=== PATIENT | male | born 1945 | race Caucasian/White ===

== ENCOUNTER → 2017-02-24 | Outpatient (CLI) | payer BC, OTHER | LOC: FIMAGING 10:41 | PROVIDERS: ATTEND Physician Assistant | DX: Z98.1 Arthrodesis status (principal) ==

== ENCOUNTER → 2017-07-31 | Outpatient (CLI) | payer BC | LOC: BMCIMAGING 11:39 | PROVIDERS: ATTEND Orthopaedic Surgery Hand Surgery | DX: Z13.828 Encounter for screening for other musculoskeletal disorder (principal); M77.8 Other enthesopathies, not elsewhere classified ==

== ENCOUNTER → 2017-10-07 | Outpatient (CLI) | payer BC | LOC: BMCIMAGING 14:03 | PROVIDERS: ATTEND Orthopaedic Surgery Hand Surgery | DX: M75.32 Calcific tendinitis of left shoulder (principal) ==

== ENCOUNTER → 2018-01-15 | Outpatient (CLI) | payer BC ==
[~2018-01-15] MED LIST: BUPIVACAINE 0.25% 30 ML SDV ONE; DEPO METHYLPREDNISOLONE 40 MG/ML SDV ONE; LIDOCAINE 1% 300 MG/30 ML SDV ONE
== END ==
LOC: FIMAGING 07:45
PROVIDERS: ATTEND Orthopaedic Surgery
PROC: 3E0U3GC Introduction of Other Therapeutic Substance into Joints, Percutaneous Approach (ICD-10-PCS; principal; 2018-01-15)
DX: M75.32 Calcific tendinitis of left shoulder (principal)
CPT/HCPCS: J1030

== ENCOUNTER → 2018-02-24 | Outpatient (CLI) | payer BC | LOC: FCPNEURO 21:30 | PROVIDERS: ATTEND Psychiatry & Neurology Sleep Medicine | DX: G47.33 Obstructive sleep apnea (adult) (pediatric) (principal); G47.61 Periodic limb movement disorder ==

== ENCOUNTER 2018-05-05 07:49 | Observation (INO) | payer BC ==
--- NOTE | 2018-05-01 10:25 | GHP ---
[f rep st] PREOP HISTORY AND PHYSICAL DATE OF ADMISSION: 05/05/2018 PROBLEM: Right knee severe degenerative arthritis. HISTORY OF PRESENT ILLNESS: The patient is a 72-year-old man admitted for right total knee arthropla sty. He has had progressive pain in his right knee for the past several years. His activities are s everely limited. He has tried anti-inflammatory medications. He underwent a successful left total k nee arthroplasty in April of 2016. He is admitted for a right total knee arthroplasty now. PAST MEDICAL HISTORY: He has been diagnosed with intermittent atrial fibrillation within the past ye ar. He has been on Eliquis. He is also treated for hypertension, hypothyroidism and elevated choles terol. No history of DVT, hepatitis, MRSA staph infections or bleeding disorders. He has sleep apne a and uses a CPAP machine. CURRENT MEDICATIONS: Amitriptyline for sleep. Cardia XT 180 mg. Diclofenac. He stopped this in pr eparation for the surgery. Eliquis 5 mg per day. Levothyroxine 100 mcg per day. Simvastatin 40 mg per day. Tamsulosin 0.4 mg per day. Valsartan 325/hydrochlorothiazide 25 mg 1 tablet per day. ALLERGIES: Drug allergies: None. Metal allergy: None. Latex allergy: None. SOCIAL HISTORY: The patient is . He is still working. He does not smoke cigarettes and occa sionally drinks alcohol. PHYSICAL EXAMINATION: VITAL SIGNS: Height 5 feet 10 inches. Weight 188 pounds. BMI 27. EYES: Co njunctivae and sclerae are clear. Pupils are round and reactive. MOUTH: Good oral hygiene. No loo se teeth. CHEST: Clear. HEART: Regular rhythm. No murmurs. EXTREMITIES: Pertinent findings are limited to his right knee. He has a small effusion. He lacks 5 degrees of full extension and flexe s to 110 degrees. He is tender along the medial joint line. Mild pseudolaxity of his medial collate ral ligament. IMAGING: His films show advanced medial compartment degenerative arthritis. He is [id number] in t he medial compartment. IMPRESSION ON ADMISSION: 1. Right knee severe degenerative arthritis. He is prepared for right total knee arthroplasty. 2. Two years status post successful left total knee arthroplasty. 3. History of intermittent atrial fibrillation. 4. Treatment for hypertension. 5. Treatment for elevated cholesterol. 6. Treatment for hypothyroidism. PLAN: He will undergo a right total knee arthroplasty. The surgery has been described to him, inclu aysha the risks, complications, expectations, and recovery time. I have stressed the importance of po stoperative physical therapy. He understands that a small percentage of people do not get a satisfac tory result with a total knee replacement. With bilateral procedures, there can be mild [id number]-[id number] differences during the recovery and even with the final result. All his questions have been answere d, and he consents to surgery. He will stop his Eliquis 4 days prior to surgery and stop his diclofe nac 4 days prior to surgery. Copy requested to: Rojelio Prasad MD [place], [place] /[id number]/MODL
[~2018-05-05 07:49] MED LIST changes: -BUPIVACAINE 0.25% 30 ML SDV ONE; -DEPO METHYLPREDNISOLONE 40 MG/ML SDV ONE; -LIDOCAINE 1% 300 MG/30 ML SDV ONE; +POVIDONE-IODINE 20 ML in SODIUM CL IRRIG SOLUTION 500 ML IRR ONE; +ROPIVACAINE 0.2% 80 MG, EPINEPHrine 0.2 MG, KETOROLAC TROMETHAMINE 30 MG in SYRINGE 0 ML IU ONE; +TRANEXAMIC ACID 1,000 MG in NS 100 ML IV ONE; +TRANEXAMIC ACID 3,000 MG in NS (SYRINGE) 50 ML IRR ONE
[2018-05-05] MEDS ORDERED: ceFAZolin 2 GM/DEXTROSE 100 ML IV ONE (08:05)
[2018-05-05] MEDS ORDERED: DEXAMETHASONE 4 MG/ML VIAL IVP ONE (08:05)
[2018-05-05] MEDS ORDERED: GABAPENTIN 300 MG CAP PO ONE (08:05)
[2018-05-05] MEDS ORDERED: ONDANSETRON 4 MG/2 ML VIAL IVP ONE (08:05)
[2018-05-05] MEDS ORDERED: ACETAMINOPHEN 325 MG TAB PO ONE (08:05)
[2018-05-05] MEDS ORDERED: FAMOTIDINE 20 MG TAB PO ONE (08:05)
[2018-05-05] MEDS ORDERED: LR 1,000 ML IV ONE (08:09)
[2018-05-05] MEDS ORDERED: LIDOCAINE 1% 2 ML INJ ID PRN (08:09)
[2018-05-05] MEDS ORDERED: VANCOMYCIN 1 GM VIAL ONE (08:26)
[2018-05-05] MEDS ORDERED: ceFAZolin 1 GM/5 ML SYR ONE (08:27)
--- NOTE | 2018-05-05 08:45 | PDHPUP ---
History & Physical Update H&P update statement: This history and physical update is based on an assessment of the patient which was completed after admission or registration (within 24 hours), but prior to the surgery/procedure. H&P update: H&P reviewed & patient examined
[2018-05-05] MEDS ORDERED: MIDAZOLAM 2 MG/2 ML VIAL IVP ONE (08:59)
--- NOTE | 2018-05-05 09:04 | PDANEPAE ---
ANE History of Present Illness 72 year old with right knee arthritis ANE Past Medical History - Cardiovascular History Hx Hypertension: Yes Hx Arrhythmias: Yes Hx Chest Pain: No Hx Coronary Artery / Peripheral Vascular Disease: No Hx CHF / Valvular Disease: No Hx Palpitations: No Cardiovascular History Comment: ATRIAL FIB. CARDIOVERSION X2 MARCH 2018. HYPERCHOLESTEROL - Pulmonary History Hx COPD: No Hx Asthma/Reactive Airway Disease: Yes Hx Recent Upper Respiratory Infection: No Hx Oxygen in Use at Home: No Hx Sleep Apnea: Yes Sleep Apnea Screening Result - Last Documented: Positive Pulmonary History Comment: ENVIRONMENTAL ALLERGIES. POS DARYA W/CPAP - Neurologic History Hx Cerebrovascular Accident: No Hx Seizures: No Hx Dementia: No - Endocrine History Hx Diabetes: No Endocrine History Comment: HYPOTHYROIDISM - Renal History Hx Renal Disorders: No - Liver History Hx Hepatic Disorders: No - Neurological & Psychiatric Hx Hx Neurological and Psychiatric Disorders: No - Cancer History Hx Cancer: No - Congenital Disorder History Hx Congenital Disorders: No - GI History Hx Gastrointestinal Disorders: Yes Gastrointestinal History Comment: PARTIAL COLECTOMY - Other Health History Other Health History: LUMBAR SPONDYLOSIS. FORAMINNAL STENOSIS. DDD. L KNEE OA. HIGH CHOLESTEROL. INSOMNIA. DEVIATED SEPTUM. BPH - Chronic Pain History Chronic Pain: Yes (LOW BACK, R KNEE) - Surgical History Prior Surgeries: CARDIOVERSION X2 MARCH 2018. L TKA. LUMBAR FUSION. BILATERAL GREAT TOE SURGERIES,. CATARACTS. CARPAL TUNNEL SURG X3, BILAT ROTATOR CUFF SURG, PARTIAL COLECTOMY, L4-5 STENOSIS SURG 2002. L4 L5 FUSION 2016 ANE Review of Systems Review of systems is: negative Review of Systems: - Exercise capacity METS (RN): 5 METS ANE Patient History - Allergies Allergies/Adverse Reactions: No Allergies [NKDA] Allergy (Verified 01/19/16 10:37) - Home Medications Home Medications: Levothyroxine [Synthroid 100 mcg (*)] 100 mcg PO DAILY06 01/15/16 [Last Taken 06:30] Simvastatin [Zocor] 40 mg PO HS 01/15/16 [Last Taken 05/05/18 06:30] Tamsulosin HCl [Flomax 0.4 MG (*)] 0.4 mg PO HS 01/15/16 [Last Taken 1 Day Ago ~ 05/04/18] Amitriptyline HCl [Elavil 25 mg (RX)] 25 mg PO HS 04/29/18 [Last Taken 1 Day Ago ~05/04/18] Apixaban [Eliquis] 5 mg PO BID 04/29/18 [Last Taken 05/01/18] Diclofenac Sodium [Voltaren 75 MG (*)] 75 mg PO BID 04/29/18 [Last Taken 3 Days Ago ~05/02/18] Diltiazem HCl [Cartia XT 180mg] 180 mg PO DAILY 04/29/18 [Last Taken 05/05/18 06 :30] Flecainide Acetate 50 mg PO BID 04/29/18 [Last Taken 05/05/18 06:30] Valsartan/Hydrochlorothiazide [Diovan Hct 320-25 mg Tablet] 1 each PO DAILY [Last Taken 05/05/18 06:30] - NPO status NPO Status: no food or drink >8 hours NPO Since - Liquids (Date): 05/04/18 NPO Since - Liquids (Time): 19:00 NPO Since - Solids (Date): 05/04/18 NPO Since - Solids (Time): 18:30 - Anes Hx Anes Hx: no prior problems - Smoking Hx Smoking Status: Never smoked - Alcohol Use Alcohol Use: Occasionally - Family Anes Hx Family Hx Anesthesia Complications: NEG ANE Labs/Vital Signs - Vital Signs Blood Pressure: 142/74 Heart Rate: 63 Respiratory Rate: 18 O2 Sat (%): 94 Height: 177.8 cm Weight: 87.09 kg ANE Physical Exam - Airway Neck exam: FROM Mallampati Score: Class 2 Mouth exam: normal dental/mouth exam - Pulmonary Pulmonary: no respiratory distress - Cardiovascular Cardiovascular: regular rate and rhythym - ASA Status ASA Status: II ANE Anesthesia Plan Anesthesia Plan: spinal
[2018-05-05] MEDS ORDERED: MIDAZOLAM 2 MG/2 ML VIAL ONE (09:08)
[2018-05-05] MEDS ORDERED: fentaNYL 100 MCG/2 ML INJ ONE ×2 (09:21→13:06)
[2018-05-05] MEDS ORDERED: PROPOFOL/EMULSION 500 MG/50 ML BOTTLE IV ONE ×2 (09:21→11:21)
[2018-05-05] MEDS ORDERED: TRANEXAMIC ACID 3,000 MG/50 ML BAG IRR ONE (10:45)
--- NOTE | 2018-05-05 11:01 | POSTOPPROG ---
Post Op Note Date of Operation: 05/05/18 Surgeon: Yony Pratt Senior Courtroom Clerk: Kel Anesthesiologist: Dr. Avila Warm Anesthesia: IV Sedation, Spinal Post-op Diagnosis: Right knee severe degenerative arthritis. Procedure: Right total knee arthroplasty Inf/Abcess present in the surg proc area at time of surgery?: No EBL: 50-100 (Adductor canal block with indwelling catheter in PACU)
[2018-05-05] MEDS ORDERED: LACTULOSE 20 GM/30 ML UDCUP PO PRN (11:21)
[2018-05-05] MEDS ORDERED: diphenhydrAMINE 25 MG CAP PO PRN (11:21)
[2018-05-05] MEDS ORDERED: POLYETHYLENE GLYCOL 3350 17 GM PKT PO PRN (11:21)
[2018-05-05] MEDS ORDERED: BISACODYL 10 MG SUPP PR PRN (11:21)
[2018-05-05] MEDS ORDERED: CYCLOBENZAPRINE 10 MG TAB PO PRN (11:21)
[2018-05-05] MEDS ORDERED: KETOROLAC 15 MG/1 ML SDV IVP ONE (11:21)
[2018-05-05] MEDS ORDERED: PROMETHAZINE HCL 25 MG/ML INJ IVP PRN ×2 (11:21→11:37)
[2018-05-05] MEDS ORDERED: NS 500 ML IV PRN (11:21)
[2018-05-05] MEDS ORDERED: METOCLOPRAMIDE 10 MG/2 ML VIAL IVP PRN (11:21)
[2018-05-05] MEDS ORDERED: ONDANSETRON DISINTEGRATING 4 MG TAB PO PRN (11:21)
[2018-05-05] MEDS ORDERED: ONDANSETRON 4 MG/2 ML VIAL IVP PRN ×2 (11:21→11:37)
[2018-05-05] MEDS ORDERED: PROMETHAZINE HCL 25 MG SUPPR PR PRN (11:21)
[2018-05-05] MEDS ORDERED: DIPHENOXYLATE/ATROPINE LOMOTIL 1 TAB PO PRN (11:21)
[2018-05-05] MEDS ORDERED: oxyCODONE IR 5 MG TAB PO PRN (11:21)
[2018-05-05] MEDS ORDERED: TEMAZEPAM 15 MG CAP PO PRN (11:21)
[2018-05-05] MEDS ORDERED: MAGNESIUM HYDROXIDE 30 ML UDCUP PO PRN (11:21)
[2018-05-05] MEDS ORDERED: LR 1,000 ML IV SCH (11:30)
--- NOTE | 2018-05-05 11:31 | GOP ---
[f rep st] OPERATIVE REPORT DATE OF OPERATION: 05/05/2018 SURGEON: Yony Pratt MD DRAWING CHECKER: SAMANTHA Marie [facility] ANESTHESIA: A combination of Marcaine, spinal, and IV sedation and adductor canal block. ANESTHESIOLOGIST: Indio Juan MD. PREOPERATIVE DIAGNOSIS: Right knee severe degenerative arthritis with varus deformity. POSTOPERATIVE DIAGNOSIS: Right knee severe degenerative arthritis with varus deformity. PROCEDURE PERFORMED: Right total knee arthroplasty, cemented, Tinajero and Nephew Journey II, posterior stabilized. FINDINGS: ESTIMATED BLOOD LOSS: Following deflation of the tourniquet was about 100 cc. DESCRIPTION OF PROCEDURE: The patient was given 2 g of IV Ancef preoperatively within 60 minutes of surgery. He also received IV tranexamic acid at a dose of 1000 mg. He was placed on the operating r oom table and given spinal anesthesia with Marcaine by Dr. Juan. He was then placed supine and given IV sedation. A Holliday catheter was not used. He wore a BRYAN stocking and SCD on the nonoperative leg . A small bolster was placed under his right hip to prevent excessive external rotation of the right lower extremity. His right lower extremity was prepped with ChloraPrep from the upper thigh tourniq uet to the tips of the toes. It was draped free using sterile sheets, stockinette, and Ioban plastic adhesive drapes. The lower leg was wrapped with compressive Coban. The leg was exsanguinated with elevation and a 6-inch compressive wrap, and the pneumatic tourniquet was inflated to 250 mmHg. The World Health Organization time-out was performed to verify the correct patient identity and the c orrect surgical side and site. The Hazel time-out was also performed. The Gaelectricayo leg holding device was sterilely attached to the operating room table and used throughout the procedure to help position the knee. A straight midline incision was made centered on the patell a. Subcutaneous tissues were sharply divided, and hemostasis was obtained using electrocautery. A m edial subcutaneous flap was developed, and the capsule and synovium were opened in a medial parapatel lar fashion. Extensive degenerative changes were present in the medial compartment and in the femora l sulcus. The medial capsule and periosteum were elevated off the rim of the medial tibial plateau a ll the way around to the posteromedial corner. The medial collateral ligament was released enough to balance the medial side of the knee and correct the varus deformity. In order to improve exposure, the patella was prepared first. The original thickness of the patella was measured. Peripheral osteophytes removed. I cut a flat surface on the back of the patella. He was sized for a 41 mm round resurfacing component. I removed enough bone from the patella such that the remaining bone plus the thickness of the patellar component recreated the original thickness of t he patella. The composite thickness was 25 mg. The intramedullary alignment guide system was used to set up the distal femoral cut. The distal femu r was cut in 5 degrees of valgus. Because of a slight preoperative flexion contracture, I made a +2 mm cut on the distal femur. The sizing jig was used to determine proper femoral sizing. He was a tr ue size 6 without a shift. The 5-in-1 cutting block was applied, and the anterior and posterior cond ylar cuts and chamfer cuts were made. The final jig was used to remove the central portion of the di stal femur to accommodate the posterior stabilized femoral component. I was careful to determine pro per rotation by referencing off Whitesides line and other bony landmarks. Each cut was checked for a ccuracy before and after it was made. The femur was sized for a size 6 posterior stabilized componen t. Next, the tibia was prepared. The proximal tibial cut was made using the extramedullary alignment gu jhonathan system. The cut was made in a few degrees of posterior slope. I was careful to achieve proper v arus/valgus alignment and proper rotation. The posterior compartment was cleared of meniscal remnant s. Osteophytes were removed from the back of the femoral condyles. I checked the flexion and extens ion gaps. I had to recut 2 additional mm off the tibia. At that point, the extension gaps were equa l, balanced and rectangular. The tibia was sized for a size 6 component. With the trial components in place, I selected a 9 mm polyethylene posterior stabilized tibial insert. The knee came to full e xtension and flexed to 125 degrees. There was no overstuffing in flexion. His collateral ligaments were stable and balanced in 90 degrees of flexion and full extension. The trial patellar button was applied, and patellar tracking was checked. Tracking was excellent without any digital pressure. 40 mL of the joint anesthetic cocktail were injected in the posterior capsule, the quadriceps muscle and tendon areas, and the subcutaneous tissues along the skin edges. The surfaces were prepared for cementing. They were carefully cleaned with the pulsating lavage irri gation and thoroughly dried. The CarboJet device was used to blow dry the cancellous surfaces. A do uble batch of high viscosity methylmethacrylate cement with 2 g of powdered vancomycin was mixed. Wh ile it was still in a doughy state, all 3 components were cemented in place. Excess cement was remov ed before it hardened. The 9 mm trial tibial insert was re-tried and was the proper thickness. The actual component was ins erted and locked into place. The knee was thoroughly irrigated one final time with a dilute Betadine solution. The tourniquet was deflated and the total tourniquet time was 55 minutes. A solution of tranexamic acid was instilled locally into the knee. The knee was packed with a lap sponge and then wrapped with a 6-inch Clint bandage and left compressed for 2 or 3 minutes. The vastus medialis portio n of the extensor mechanism was repaired with several interrupted [id number] #2 FiberWire suture s. The capsule and synovium were closed first with multiple interrupted gpexcx-fl-tpsqg 0 PDS suture s, followed by a running #2 barbed Ethicon Stratafix PDO suture. Subcutaneous tissues were closed wi th a running 0 barbed Ethicon Stratafix Monoderm suture. The skin was closed with a running 3-0 silver ed Ethicon Stratafix Monoderm subcuticular suture. The skin was sealed with half-inch Steri-Strips. The wound was covered with a large Mepilex waterproof dressing and a 6-inch compressive wrap. A deborah g-leg BRYAN stocking and SCD were applied, followed by the cooling device. The patient wore a stocking and SCD on the opposite leg during the procedure. The sacral Mepilex dressing was applied. I used a size 6 cemented Tinajero and Nephew Oxinium posterior stabilized femoral component, size 6 ceme nted tibial base plate, a 9 mm posterior stabilized tibial insert and a 41 mm cemented round all-poly ethylene resurfacing patellar component. COUNTS: The sponge and needle count were correct on 2 occasions. DISPOSITION: He was awakened from anesthesia, transferred to his hospital [facility] and taken to PACU i n satisfactory condition. There were no recognized intraoperative complications. In the PACU, for a dditional postoperative pain control, Dr. Juan performed an adductor canal block with an indwelling c atheter. Jamie Grijalva and Pepe Aquino acted as surgical assistants. Their assistance was a medical necess ity for safe completion of the procedure. /[id number]/MODL
[2018-05-05] MEDS ORDERED: NALOXONE HCL 0.4 MG/ML INJ IVP PRN (11:37)
--- NOTE | 2018-05-05 11:38 | POSTANESTH ---
Post Anesthetic Evaluation Cardiovascular Status: Normal, Stable Respiratory Status: Normal, Stable Level of Consciousness/Mental Status: Can Participate in Eval, Mildly Sleepy, Arousable Pain Control: Adequate, Prn Tx Ordered Nausea/Vomiting Control: Adequate, Prn Tx Ordered Complications Possibly Related to Anesthesia: None Noted
[2018-05-05] MEDS: fentaNYL 100 MCG/2 ML INJ IVP PRN ×2 (13:07→13:17)
[2018-05-05] MEDS ORDERED: oxyCODONE IR 5 MG TAB ONE (13:28)
[2018-05-05] MEDS ORDERED: ceFAZolin 2 GM/DEXTROSE 100 ML IV SCH (14:00)
[2018-05-05] MEDS: ACETAMINOPHEN 325 MG TAB PO SCH ×2 (16:54→17:27)
[2018-05-05] MEDS: ceFAZolin 2 GM/DEXTROSE 100 ML IV SCH (17:25)
[2018-05-05] MEDS: FLECAINIDE ACETATE 100 MG TAB PO SCH (20:33)
[2018-05-05] MEDS: SENNOSIDES/DOCUSATE SODIUM TAB PO SCH (20:36)
[2018-05-05] MEDS: FAMOTIDINE 20 MG TAB PO SCH (20:36)
[2018-05-05] MEDS ORDERED: TAMSULOSIN HCL 0.4 MG CAP PO SCH (21:00)
[2018-05-05] MEDS ORDERED: ATORVASTATIN CALCIUM 20 MG TAB PO SCH (21:00)
[2018-05-05] MEDS ORDERED: AMITRIPTYLINE HCL 25 MG TAB PO SCH (21:00)
[2018-05-06] MEDS: ACETAMINOPHEN 325 MG TAB PO SCH ×3 (00:17→06:58)
[2018-05-06] MEDS: ceFAZolin 2 GM/DEXTROSE 100 ML IV SCH (01:27)
[2018-05-06] MEDS ORDERED: LEVOTHYROXINE 100 MCG TAB PO SCH (06:00)
[2018-05-06] MEDS: FLECAINIDE ACETATE 100 MG TAB PO SCH (07:59)
[2018-05-06] MEDS: SENNOSIDES/DOCUSATE SODIUM TAB PO SCH (07:59)
[2018-05-06] MEDS: FAMOTIDINE 20 MG TAB PO SCH (08:00)
--- NOTE | 2018-05-06 08:33 | SOAPPROG ---
SOAP Progress Note Assessment/Plan: Assessment: Afebrile. Minimal pain. Up and walking in the thao. He has already done stairs. Hemoglobin hematocrit are good. Postop films look excellent. Plan: Physical therapy today. Standing full-length alignment film. Discharge later today. 05/06/18 08:32 Objective: Vital Signs Temp Pulse Resp BP Pulse Ox 36.8 C 69 18 123/69 H 94 05/06/18 04:43 05/06/18 07:59 05/06/18 04:43 05/06/18 07:59 05/06/18 04:43 Laboratory Results 05/06/18 04:40 05/05/18 05/06/18 05/07/18 05:59 05:59 05:59 Intake Total 1590 Output Total 1200 Balance 390 ICD10 Worksheet Patient Problems: Problems Problem Status Onset Osteoarthritis of right knee Acute Lumbago Acute Lumbar radiculitis Acute Lumbar stenosis Acute Osteoarthritis of left knee Acute
--- NOTE | 2018-05-06 08:46 | GDS ---
[f rep st] DISCHARGE SUMMARY ADMISSION DIAGNOSIS: Right knee degenerative arthritis. DISCHARGE DIAGNOSIS: Right knee degenerative arthritis. OPERATION PERFORMED: 05/05/2018, right total knee arthroplasty. POSTOPERATIVE COMPLICATIONS: None. CONDITION ON DISCHARGE: Improved. DESCRIPTION OF HOSPITAL COURSE: The patient was admitted to the hospital on the morning of surgery. His admission CBC, electrolytes, BUN, and creatinine were all normal. The same day, under a combination of Marcaine, spinal, IV sedation, and adductor canal block, he unde rwent a right total knee arthroplasty. Postoperatively, he was treated with multimodal DVT prophylaxis, including aspirin. On the first postoperative day, his hemoglobin and hematocrit were 12.8 and 36.2. He was seen by [facility] and made excellent progress with ambulation and stairs. By the time of discharge, he was afebrile and was independent walking with crutches. DISPOSITION: The patient is discharged to his home. He will go to outpatient physical therapy. He may progress to full weightbearing on the right as tolerated. Use BRYAN stockings for 1 week. Continu e aspirin 325 mg p.o. daily for 21 days. Continue Celebrex 200 mg daily for 21 days. He has prescri ptions for tramadol and oxycodone for pain control. I will see him back in the office on May 18, 2018. If there any problems, he is to call me at the [facility]. /[id number]/MODL
[2018-05-06] MEDS ORDERED: HYDROCHLOROTHIAZIDE 25 MG TAB PO SCH (09:00)
[2018-05-06] MEDS ORDERED: VALSARTAN 160 MG TAB PO SCH (09:00)
[2018-05-06] MEDS ORDERED: FERROUS SULFATE 140 MG TAB.ER PO SCH (09:00)
[2018-05-06] MEDS ORDERED: APIXABAN 5 MG TAB PO SCH (09:00)
[2018-05-06] MEDS ORDERED: DILTIAZEM CD 180 MG CAP PO SCH (09:00)
--- NOTE | 2018-05-06 10:03 | POSTANESTH ---
Post Anesthetic Evaluation Cardiovascular Status: Normal, Stable, Tx Over/Under Hydration Level of Consciousness/Mental Status: Can Participate in Eval, Alert and Oriented Pain Control: Adequate, Prn Tx Ordered Nausea/Vomiting Control: Adequate, Prn Tx Ordered Complications Possibly Related to Anesthesia: None Noted (Pt is POD #1 for TKA. Adductor canal catheter placed for post op pain control. Pt reports excellent pain control. Catheter site clen with dressing intact. 20 ml of 0.5 % ropivicaine injected. Catheter removed with tip intact.)
[2018-05-06 10:34] VITALS: BP 132/70
--- NOTE | 2018-05-06 11:34 | ASMTLACE ---
SIXTO Length of stay for Answers: 1 day current admission Acuity / Level of Answers: No Care: Did the patient have an inpatient admission? Comorbidities - select Answers: Other Notes: HTN, afib, Flecainide all that apply monitoring, HLD, DARYA # of Emergency department Answers: 0 visits in the last 6 months Score: 2 Date Signed: 05/06/2018 11:34 AM Electronically Signed By:Tracey Stacy RN
--- NOTE | 2018-05-06 12:05 | ASDISCHSUM ---
Discharge Information Plan Status:Home with No Needs Medically Cleared to Leave:05/06/2018 Discharge Date:05/06/2018 11:36 AM CM D/C Disposition:Home, Routine, Self-Care ADT D/C Disposition:Home, Routine, Self-Care Projected Discharge Date:05/06/2018 11:36 AM Transportation at D/C:Family Discharge Delay Reason: Follow-Up Date:05/06/2018 11:36 AM Discharge Slot:2 - 12:01 pm - 18:00 pm Final Diagnosis:Unilateral primary osteoarthritis, s/p right total knee arthroplasty Placement Information Patient Contact Information Contact Name:SOLOMON Relationship: Address:[address] City:[place] Alternate Phone: [facility]/Zip Code:[place] [address] Email: Financial Information Financial Class:HMO and PPO Plans Primary Plan Desc: OUT OF STATE PPO Primary Plan Number:[id number] Secondary Plan Desc: Secondary Plan Number: Assessment Information LACE LACE Length of stay for Answers: 1 day current admission Acuity / Level of Answers: No Care: Did the patient have an inpatient admission? Comorbidities - select Answers: Other Notes: HTN, afib, Flecainide all that apply monitoring, HLD, DARYA # of Emergency department Answers: 0 visits in the last 6 months Score: 2 Date Signed: 05/06/2018 11:34 AM Electronically Signed By:Tracey Stacy RN Intervention Information
--- NOTE | 2018-05-06 12:18 | ASMTCMCOM ---
CM Note CM Note Notes: Pt admitted for planned right total knee arthroplasty secondary to unilateral primary osteoarthritis. History includes afib, Flecainide monitoring, HTN, hyperlipidemia, hypothyroidsim, DARYA, and BPH. Pt is and lives with his spouse. Per MD notes, pt to discharge home independently with family support and no identified needs. PT recommends home with crutches and outpt therapy. OT cleared. No IM signed, not applicable. Pt to follow up as directed. CM available for any further issues or concerns. Discharge Plan: Home independently with family support Date Signed: 05/06/2018 11:41 AM Electronically Signed By:Tracey Stacy RN
== END 2018-05-06 11:36 | disposition home or self-care (01) ==
LOC: F3N 07:49
PROVIDERS: ADMIT Orthopaedic Surgery; ATTEND Orthopaedic Surgery
PROC: 0SRD069 Replacement of Left Knee Joint with Oxidized Zirconium on Polyethylene Synthetic Substitute, Cemented, Open Approach (ICD-10-PCS; principal; 2018-05-05 09:30)
DX: M17.11 Unilateral primary osteoarthritis, right knee (principal); I48.2 Chronic atrial fibrillation; I10 Essential (primary) hypertension; E03.9 Hypothyroidism, unspecified; G47.33 Obstructive sleep apnea (adult) (pediatric); N40.0 Benign prostatic hyperplasia without lower urinary tract symptoms; Z96.652 Presence of left artificial knee joint
CPT/HCPCS: 27447; 73560; 77073; 97116; 97161; 97165; 97530; G0378; C1713; J0171; J0690; J1100; J1885; J2250; J2405; J2704; J2795; J3010; J3370

== ENCOUNTER → 2018-08-20 | Outpatient (CLI) | payer BC | LOC: FIMAGING 10:02 | PROVIDERS: ATTEND Internal Medicine | DX: K40.90 Unilateral inguinal hernia, without obstruction or gangrene, not specified as recurrent (principal) ==

== ENCOUNTER → 2019-03-24 | Outpatient (CLI) | payer BC | LOC: FIMAGING 12:30 ==